=== PATIENT | male | born 1990 | race Caucasian/White ===

== ENCOUNTER 2019-04-08 11:00 | Emergency (ER) | payer OTHER ==
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
== END 2019-04-08 12:35 | disposition home or self-care (01) ==
LOC: MW.ED 11:00
DX: S40.212A Abrasion of left shoulder, initial encounter (principal); R51 Headache; V58.5XXA Driver of pick-up truck or van injured in noncollision transport accident in traffic accident, initial encounter
CPT/HCPCS: 70450; 70450-26; 71046; 71046-26; 72125; 72125-26; 73030-26-LT; 73030-LT; 99282; 99284-25